=== PATIENT | male | born 1980 | race Caucasian/White ===

== ENCOUNTER 2016-11-21 10:55 | Emergency (ER) | payer MEDICAID ==
[~2016-11-21] VITALS: Ht 185.4 cm; Wt 91.2 kg
[2016-11-21 11:01] VITALS: BP 156/105
== END 2016-11-21 12:40 | disposition home or self-care (01) ==
LOC: ED 10:55
DX: K13.0 Diseases of lips (principal); N48.89 Other specified disorders of penis; Z79.899 Other long term (current) drug therapy; B20 Human immunodeficiency virus [HIV] disease
CPT/HCPCS: 87491; 87591; J0696

== ENCOUNTER 2016-11-24 08:14 | Inpatient (IN) | payer MEDICAID ==
[~2016-11-24] VITALS: Ht 182.9 cm; Wt 86.9 kg
[2016-11-24 08:53] LABS: BASOPHIL % 0.4 % (0-2); PLATELET COUNT 322 x10^3mcL (130-400); RED CELL DISTRIBUTION WIDTH 14.1 % (11.5-14.5)
[2016-11-24 09:06] LABS: CARBON DIOXIDE 32.6 mmol/L (21-32); CHLORIDE SERUM 96 mmol/L (98-107); CREATININE SERUM 1.2 mg/dL (0.7-1.3); GFR1 > 60 mL/min; GLUCOSE SERUM 94 mg/dL (74-106); SODIUM SERUM 134 mmol/L (136-145)
[2016-11-24 09:10] LABS: ALBUMIN 3.4 g/dL (3.4-5.0); ALKALINE PHOSPHATASE 98 U/L (46-116); ALT/SGPT 44 U/L (16-63); AST/SGOT 17 U/L (15-37); BILIRUBIN TOTAL 0.3 mg/dL (0.20-1.00)
[2016-11-24 09:11] LABS: TOTAL PROTEIN, SERUM 8.7 g/dL (6.4-8.2)
[2016-11-24] MEDS ORDERED: BACTRIM DS1 TAB PO (09:56)
[2016-11-24 10:26] LABS: MAGNESIUM 2.1 mg/dL (1.8-2.4); PHOSPHOROUS 3.8 mg/dL (2.5-4.9)
[2016-11-24 10:27] VITALS: BP 137/84
[2016-11-24 10:31] LABS: CHOLESTEROL/HDL RATIO 3.6
[2016-11-24 10:47] VITALS: BP 137/84
[2016-11-24 10:50] LABS: FREE T4 1.21 ng/dL (0.76-1.46); FREE THYROXINE INDEX 3.4 ug/dL (1.4-4.5); T4(THYROXINE) 9.8 ug/dL (4.7-13.3)
[2016-11-24 11:01] LABS: T3 TOTAL 1.62 ng/mL
[2016-11-24 12:49] VITALS: BP 116/74
[2016-11-24 17:25] VITALS: BP 121/74
[2016-11-24 21:33] LABS: UA SPECIFIC GRAVITY >=1.030 (1.005-1.035); microscopic required? YES
[2016-11-24 21:34] LABS: urine erythrocyte TRACE (NEGATIVE)
[2016-11-24 21:38] LABS: AMPHETAMINE QUAL UR POSITIVE (NEG <=1000)
[2016-11-24 21:48] VITALS: BP 126/81
[2016-11-25 05:43] VITALS: BP 122/64
[2016-11-25 07:00] LABS: BASOPHIL % 0.6 % (0-2); PLATELET COUNT 281 x10^3mcL (130-400); RED CELL DISTRIBUTION WIDTH 14.1 % (11.5-14.5)
[2016-11-25 07:18] LABS: CALCIUM 8.3 mg/dL (8.5-10.1); CARBON DIOXIDE 26.4 mmol/L (21-32); CHLORIDE SERUM 104 mmol/L (98-107); GFR1 > 60 mL/min; GLUCOSE SERUM 90 mg/dL (74-106); POTASSIUM SERUM 4.3 mmol/L (3.5-5.1); SODIUM SERUM 137 mmol/L (136-145)
[2016-11-25 10:01] VITALS: BP 109/68
[2016-11-25 10:23] VITALS: BP 109/68
[2016-11-25 14:36] VITALS: BP 100/65
[2016-11-25 20:53] VITALS: BP 140/65
[2016-11-26 05:11] VITALS: BP 115/71
[2016-11-26 10:10] VITALS: BP 128/83
[2016-11-26 13:10] VITALS: BP 111/80
[2016-11-26 16:00] VITALS: Ht 182.9 cm; Wt 86.9 kg
[2016-11-26 17:10] VITALS: BP 131/81
[2016-11-26 20:50] VITALS: BP 118/71
[2016-11-27 05:35] VITALS: BP 115/78
[2016-11-27 09:28] VITALS: BP 145/85
[2016-11-27] MEDS ORDERED: BACTRIM DS1 TAB PO (11:29)
[2016-11-27] MEDS ORDERED: ZOVIRAX400 MG PO (11:29)
[2016-11-27] MEDS ORDERED: LAC PO (11:37)
[2016-11-27 12:52] VITALS: BP 145/85
== END 2016-11-27 13:45 | disposition home or self-care (01) | DRG 383 ==
LOC: ED 08:14 → DU 09:30 → MU 11-27 07:12
PROVIDERS: Emergency Medicine; ADMIT Family Medicine
DX: L01.03 Bullous impetigo (principal); N17.0 Acute kidney failure with tubular necrosis; B20 Human immunodeficiency virus [HIV] disease; B95.8 Unspecified staphylococcus as the cause of diseases classified elsewhere; E87.1 Hypo-osmolality and hyponatremia; E44.1 Mild protein-calorie malnutrition; F15.10 Other stimulant abuse, uncomplicated; F12.10 Cannabis abuse, uncomplicated; Z68.26 Body mass index [BMI] 26.0-26.9, adult; Z91.14 Patient's other noncompliance with medication regimen; Z59.0 Homelessness
CPT/HCPCS: 84439; J0133; J0295; J0696; J1885; J2270; J3370; J3490; J7030; Q0092

== ENCOUNTER 2017-07-19 18:14 | Emergency (ER) | payer OTHER ==
[~2017-07-19] VITALS: Ht 185.4 cm; Wt 90.7 kg
[~2017-07-19 18:14] MED LIST: BACTRIM DS1 TAB PO; LAC PO; ZOVIRAX400 MG PO
[2017-07-19 18:57] VITALS: Ht 185.4 cm; Wt 90.7 kg
[2017-07-19 21:23] VITALS: BP 152/95
== END 2017-07-19 20:20 | disposition home or self-care (01) ==
LOC: ED 18:14
DX: J02.9 Acute pharyngitis, unspecified (principal)
CPT/HCPCS: J0295